=== PATIENT | male | born 1955 | race Caucasian/White ===

== ENCOUNTER 2019-02-17 04:58 | Inpatient (IN) ==
[2019-02-10 13:22] LABS: Appearance,Urine CLEAR; Bacteria,Urine 0 /hpf (0); Bilirubin,Urine NEG (NEG); Color,Urine STRAW; Glucose,Urine (UA) NEGATIVE (NEG); Ketones,Urine NEG (NEG); Leukocyte Esterase,Urine NEG /uL (NEG); Nitrate,Urine NEG (NEG); Protein,Urine 30 mg/dL (NEG); Specific Gravity,Urine 1.004 (1.000-1.035); Urine Blood NEG mg/dL (<0.03); Urine RBC 0 /hpf (0-1); Urine Squamous Epithelial Cell < 1 /hpf (0-4); Urine WBC 0 /hpf (0-4); Urobilinogen,Urine NEG (NEG)
[2019-02-10 14:14] LABS: Basophils # (Auto) 0.1 K/mcL (0.0-0.3); Eosinophils # (Auto) 0.1 K/mcL (0.0-0.7); Eosinophils % (Auto) 0.8 % (0.0-7.0); Granulocytes % (Auto) 57.5 % (38.0-78.0); Hematocrit 45.5 % (41.0-55.0); Hemoglobin 15.5 g/dL (13.5-16.5); Lymphocytes # (Auto) 2.4 K/mcL (1.5-4.8); Lymphocytes % (Auto) 30.1 % (15.5-49.0); Mean Cell Volume 98.2 fL (80.0-100.0); Mean Platelet Volume 8.1 fL (7.4-10.4); Monocytes # (Auto) 0.8 K/mcL (0.1-0.9); Monocytes % (Auto) 10.6 % (1.0-12.0); Platelet Count 269 K/mcL (140-440); RBC 4.64 M/mcL (4.50-5.90); Red Cell Distribution Width 13.1 % (11.5-14.5)
[2019-02-10 14:53] LABS: Blood Urea Nitrogen 5 mg/dl (8-23); Calcium 9.3 mg/dl (8.6-10.4); Carbon Dioxide 24 mmol/L (22-30); Chloride 91 mmol/L (96-108); Glomerular Filtration Rate 106; Glucose 108 mg/dL (70-105)
[2019-02-17] MEDS ORDERED: SCOPOLAMINE 1 PATCH PATCH TOPICAL PRN (05:00)
[2019-02-17] MEDS ORDERED: IPRATROPIUM/ALBUTEROL 3 ML AMPUL.NEB NEB PRN ×2 (05:00→08:33)
[2019-02-17 05:15] LABS: POC Blood Urea Nitrogen 4 mg/dl (8-23); POC CO2 22 mmol/L (22-30); POC Calcium, Ionized 1.09 mmol/L (1.16-1.32); POC Chloride 98 mmol/L (96-108); POC Creatinine 0.6 mg/dl (0.7-1.2); POC Glucose, Random 99 mg/dL (70-105); POC Potassium 4.5 mmol/L (3.3-5.1); POC Sodium 130 mmol/L (133-145)
[2019-02-17] MEDS ORDERED: oxyCODONE 10 MG TAB.ER.12H PO SCH (06:00)
[2019-02-17] MEDS ORDERED: PREGABALIN 75 MG CAPSULE PO SCH (06:00)
[2019-02-17] MEDS ORDERED: ceFAZolin 2 GM in DEXTROSE 5% IN WATER 50 ML IV SCH (06:00)
[2019-02-17] MEDS ORDERED: CELECOXIB 200 MG CAPSULE PO SCH (06:00)
[2019-02-17] MEDS ORDERED: IPRATROPIUM/ALBUTEROL 3 ML AMPUL.NEB NEB ONE (07:07)
[2019-02-17] MEDS ORDERED: PROPOFOL 200 MG/20 ML VIAL IV ONE (07:35)
[2019-02-17] MEDS ORDERED: KETAMINE 100 MG/ML ML IV ONE (07:35)
[2019-02-17] MEDS ORDERED: ROCURONIUM 10 MG/ML ML IV ONE (07:35)
[2019-02-17] MEDS ORDERED: LIDOCAINE HCL/PF 100 MG/5 ML SYRINGE IV ONE (07:35)
[2019-02-17] MEDS ORDERED: ONDANSETRON 4 MG/2 ML VIAL IV ONE (07:35)
[2019-02-17] MEDS ORDERED: SUCCINYLCHOLINE 20 MG/ML ML IV ONE (07:35)
[2019-02-17] MEDS ORDERED: fentaNYL 250 MCG/5 ML VIAL IV ONE (07:35)
[2019-02-17] MEDS ORDERED: ROPIVACAINE HCL/PF 30 ML VIAL IJ ONE (07:35)
[2019-02-17] MEDS ORDERED: TRANEXAMIC ACID 1,000 MG/10 ML VIAL IV ONE ×2 (07:35→08:57)
[2019-02-17] MEDS ORDERED: MIDAZOLAM 5 MG/5 ML VIAL IV ONE (07:35)
[2019-02-17] MEDS ORDERED: DEXAMETHASONE 10 MG/ML VIAL IV ONE (07:35)
[2019-02-17] MEDS ORDERED: PHENYLEPHRINE 10 MG/ML VIAL IV ONE (07:35)
[2019-02-17] MEDS ORDERED: GENTAMICIN SULFATE 800 MG/20 ML VIAL IR ONE (08:00)
[2019-02-17] MEDS ORDERED: METHOCARBAMOL 1,000 MG/10 ML VIAL IV PRN (08:33)
[2019-02-17] MEDS ORDERED: diphenhydrAMINE 50 MG/ML VIAL IV PRN (08:33)
[2019-02-17] MEDS ORDERED: PROMETHAZINE 25 MG/ML VIAL IV PRN (08:33)
[2019-02-17] MEDS ORDERED: FLUMAZENIL 0.1 MG/ML ML IV PRN (08:33)
[2019-02-17] MEDS ORDERED: HYDROmorphone 2 MG/ML VIAL IV PRN (08:33)
[2019-02-17] MEDS ORDERED: NALOXONE HCL 0.4 MG/ML VIAL IV PRN (08:33)
[2019-02-17] MEDS ORDERED: ACETAMINOPHEN 1,000 MG/100 ML BOTTLE IV ONE ×2 (08:33→10:00)
[2019-02-17] MEDS ORDERED: ePHEDrine 50 MG/ML AMPUL IV PRN (08:33)
[2019-02-17] MEDS ORDERED: ONDANSETRON 4 MG/2 ML VIAL IV PRN ×2 (08:33→08:57)
[2019-02-17] MEDS ORDERED: ATROPINE SULFATE 0.4 MG/ML VIAL IV PRN (08:33)
[2019-02-17] MEDS ORDERED: LACTATED RINGERS 1,000 ML IV SCH (08:45)
[2019-02-17] MEDS ORDERED: ONDANSETRON 4 MG ODT TABLET SL PRN (08:57)
[2019-02-17] MEDS ORDERED: MAGNESIUM HYDROXIDE 30 ML ORAL.SUSP PO PRN (08:57)
[2019-02-17] MEDS ORDERED: BISACODYL 10 MG SUPP.RECT PR PRN (08:57)
[2019-02-17] MEDS ORDERED: POLYETHYLENE GLYCOL 3350 17 GM PACKET PO PRN (08:57)
[2019-02-17] MEDS ORDERED: KETOROLAC 15 MG/ML VIAL IV PRN (08:57)
[2019-02-17] MEDS ORDERED: FLEETS ADULT ENEMA PR PRN (08:57)
[2019-02-17] MEDS ORDERED: METHOCARBAMOL 750 MG TABLET PO PRN (08:57)
[2019-02-17] MEDS ORDERED: BENZOCAINE/MENTHOL 1 LOZENGE PO PRN (08:57)
--- NOTE | 2019-02-17 08:57 | Brief Operative Note ---
Date of procedure: 02/17/19 Pre-op diagnosis: left shoulder rtc tear arthropathy Post-op diagnosis: same Procedure: left reverse total shoulder arthroplasty Grafts/Implants: Yes Anesthesia: GETA Complications: none Surgeon: Ramon Bansal Geological [employer] Teacher: Lesly Jeong Estimated blood loss (cc): 150 Specimens Removed/Pathology: none sent Condition: stable Disposition: PACU
[2019-02-17] MEDS: fentaNYL 100 MCG/2 ML VIAL IV PRN ×8 (09:35→10:30)
[2019-02-17] MEDS: METOPROLOL TARTRATE 5 MG/5 ML VIAL IV PRN ×2 (09:38→09:48)
[2019-02-17] MEDS: METOPROLOL TARTRATE 5 MG/5 ML VIAL IV SCH ×3 (10:14→10:40)
--- NOTE | 2019-02-17 10:26 | XRay Report ---
CLINICAL INFORMATION: Post-Op Total Shoulder COMPARISON: None. FINDINGS: Total shoulder prosthesis is anatomically aligned. No osseous abnormality. Periarticular gas and soft tissue swelling are seen as expected. IMPRESSION: Negative Interpreted and Authenticated by: Ramon Sandhu 02/17/19
[2019-02-17] MEDS ORDERED: hydrALAZINE 20 MG/ML VIAL IV ONE (10:31)
[2019-02-17] MEDS: MEPERIDINE 25 MG/ML SYRINGE IV PRN ×2 (10:38→10:43)
--- NOTE | 2019-02-17 10:47 | Operative Note ---
DATE OF OPERATION: 02/17/2019 PREOPERATIVE DIAGNOSIS: Left shoulder rotator cuff tear arthropathy. POSTOPERATIVE DIAGNOSIS: Left shoulder rotator cuff tear arthropathy. PROCEDURE: Left reverse total shoulder arthroplasty. SURGEON: Myranda Bansal M.D. TAPROOM ATTENDANT SURGEON: Lesly Jeong PA-C. The PA's assistance was required for the safe and efficient completion of the entire case. This provider's expertise and technical skill were required throughout the case. The PA assisted with preoperative coordination, intraoperative retraction, wound closure, dressing and splint application, as well as postoperative documentation and care coordination. ANESTHESIA: General. ESTIMATED BLOOD LOSS: 150 mL. COMPLICATIONS: None noted. SPECIMENS REMOVED: None. DRAINS: None. IMPLANTS: DePuy Delta Xtend cementless metaglene, FANG-coated, cementless; DePuy Delta Xtend locking metaglene screw 4.5 x 30 (x2), 4.5 x 24 (x1), 4.5 x 18 nonlocking (x1); Delta Xtend glenosphere standard 38 mm; DePuy Delta Xtend modular humeral stem size 14, FANG-coated, cementless; DePuy Delta Xtend modular eccentric epiphysis size 2 left, FANG-coated, cementless; DePuy Delta Xtend humeral polyethylene cup, standard 38, +6. INDICATIONS: The patient has had a longstanding history of worsening pain in the shoulder that has failed conservative treatment. Radiographs have confirmed advanced degenerative joint disease and a failed rotator cuff. After a long discussion about treatment options, the patient elected to proceed with a reverse total shoulder arthroplasty. The risks and benefits were discussed with the patient in detail including, but not limited to, the risks of anesthesia, problems with the heart or lungs related to anesthesia, infection, compromise or injury to the nerves and blood vessels, deep venous thrombosis, pulmonary embolism, pneumonia, continued pain after surgery, worsening pain or symptoms after surgery, swelling, loss of motion, instability, fracture, arm length discrepancy, and need for repeat surgery. DESCRIPTION OF PROCEDURE: The patient was seen in the preanesthesia waiting room where all questions were answered and the correct side and site were identified and marked. The patient was transferred to the operating room and administered the anesthetic and given preoperative antibiotics. A time-out was then called. The patient was placed in the modified beach chair position with all prominences well padded. The extremity was prepped and draped from the fingers up to the neck. A standard deltopectoral skin incision was created. Dissection was carried down to the deltopectoral groove and the cephalic vein was isolated medially and retracted laterally with the deltoid. Retractors were placed and the coracobrachialis was split up to the coracoacromial ligament allowing retraction of the conjoined tendon. We split the subscapularis 1 cm medial to the bicipital groove and extended the split into the rotator interval. This was tagged for later repair. The supraspinatus and infraspinatus had been previously torn and retracted. The biceps had previously been ruptured, and it was not present in the ____ groove. A capsular release was performed in a posterior subperiosteal direction along the humerus. The humeral head was then dislocated. We established intramedullary access and hand reamed up to get good cortical chatter with the Nervogrid Delta XTEND reverse total shoulder instrumentation. We then used the intramedullary guide and set to about 5 degrees of retroversion. The proximal humerus cut was performed and osteophytes were removed. A metal protector plate was then placed. Attention was then turned to the glenoid. Retractors were placed for optimal visualization and the labrum was excised in its entirety. A centralizing Steinmann pin was placed just into the posterior inferior quadrant in a standard fashion. We reamed over the pin to remove all the cartilage and get to a good base for the prosthesis. The drill was then placed over for the central peg. A cementless Metaglene was then impacted into place. We then drilled, measured, and placed the four screws starting inferior, then superior, then anterior, and finally posterior. The superior locking screw was lined up at the base of the coracoid process. We then impacted the head onto the Metaglene and tightened down in a standard fashion. Attention was then turned back to the humerus. Proximal reaming was performed off the intramedullary guide into the humeral head, using the eccentric guide to allow best coverage. We again set version and broached up to a stable implant. Trials were placed and good tension, motion, and stability were obtained at this point. Trials were removed and the final press fit femoral prosthesis was impacted into place with measured version. The final polyethylene was placed and the shoulder was reduced and again checked for motion, tension, and stability. We irrigated with 3 liters of antibiotic saline and closed the subscapularis with # 2 FiberWire. We irrigated again and closed the deltopectoral interval with several # 0 Vicryl figure of eight sutures. The subcutaneous layer was closed with 2-0 Vicryl and the skin was closed with Dermabond. A sterile pressure dressing was applied and the patient was placed into an abduction sling. All needle and sponge counts were correct. The patient was transferred to the recovery room in stable condition. PHIL:[email or web address] Job ID: [id number] Doc ID: [id number] Myranda Bansal MD
[2019-02-17] MEDS ORDERED: FLU VACC QS2019-20(6MOS UP)/PF 60 MCG/0.5 ML SYRINGE IM ONE (11:00)
[2019-02-17] MEDS: HYDROcodone/APAP 10/325MG TABLET PO PRN ×4 (12:43→23:01)
[2019-02-17] MEDS: DOCUSATE SODIUM 100 MG CAPSULE PO SCH ×2 (12:44→21:07)
[2019-02-17] MEDS: METOPROLOL TARTRATE 50 MG TABLET PO SCH ×2 (12:44→21:08)
[2019-02-17] MEDS: LACTATED RINGERS 1,000 ML IV SCH ×2 (16:29→18:06)
[2019-02-17] MEDS: 0.9 % SODIUM CHLORIDE 10 ML SYRINGE IV SCH ×2 (16:31→21:08)
[2019-02-17] MEDS: ceFAZolin 1 GM VIAL IV SCH (16:40)
[2019-02-17] MEDS ORDERED: SIMVASTATIN 10 MG TABLET PO SCH (21:00)
[2019-02-17] MEDS ORDERED: SENNOSIDES 1 TABLET PO SCH (21:00)
[2019-02-18] MEDS: ceFAZolin 1 GM VIAL IV SCH (00:21)
[2019-02-18] MEDS: LACTATED RINGERS 1,000 ML IV SCH ×2 (00:59→09:12)
[2019-02-18] MEDS: HYDROcodone/APAP 10/325MG TABLET PO PRN ×2 (04:43→09:11)
[2019-02-18] MEDS: 0.9 % SODIUM CHLORIDE 10 ML SYRINGE IV SCH (05:29)
[2019-02-18 06:17] LABS: Hematocrit 41.9 % (41.0-55.0)
--- NOTE | 2019-02-18 07:09 | Discharge Summary ---
Providers - Providers Patient information: Note initiated : 02/18/19 at 7:07 am Service Date, if different from initiated Date: [] Patient: Thiago Diaz 63 y/o M admitted on 02/17/19 for Left Reverse Total Shoulder Arthroplasty . Chief Complaint: [POD #1 s/p left TSA Denies shoulder pain, CP, SOB, numbness/tingling. Has no concerns] Discharge date: 02/18/19 Hospitalization Hospital Course: Patient was brought into OR yesterday for left total shoulder replacement which went on without complication. Was admitted overnight for post op care and pain control. Will discharge home today and follow up in 10-14 days for post op appt. Discharge diagnosis: shoulder osteoarthritis Exam - Exam Incision healing: Yes Incision draining: No Incision red: No Incision swollen: No Incision inflamed: No Clean and dry: Yes Weight bearing status: none Range of motion: full wrist and hand Ortho Discharge - TSA - Patient Instructions Diet: Regular Diet Activity: non weight bearing, other (sling multimedia coordinator for sleep and activity. May remove for hygiene and exercises) Total Shoulder Protocol: Leave immobilizer in place except for bathing and ROM. Abduction pillow. Continue to wear sling until seen by physician. Codman Pendulum : These exercises use momentum produced by your body to move your shoulder joint. Bend your knees and shift your weight to your front leg, then back, allowing your arm to swing in the same directions. Using the same technique, alternately shift your weight between your right and left legs, allowing your arm to swing from side to side. These exercises are also performed in counterclockwise and clockwise circular motions. Typically these exercises are performed several times per day, for a set number repetitions or minutes, such as 20 times in a row or 5 minutes at a time. Dressing Care: May shower in 2 days, Other (Alexander dressing is shower proof. Leave in place until post op appointment. Pat and air dry when done with shower. If alexander dressing starts to fall off before appointment, may remove. Glue patch beneath is also shower proof. Keep covered outside of shower if this happens) - Follow Up Plan Follow Up Appointments: Lesly Jeong PA-C [Physician Supervisor Weaving] - 03/04/19 9:00 am Disposition: Home, Self-Care Prognosis: Good Rehab Potential: Good I certify that the patient requires SNF services: No Overall status at discharge: patient is progressing back to baseline - Orders For Discharge Prescriptions: HYDROcodone/APAP 10/325MG [[place] 10-325Mg] 1 - 2 tab PO Q4HP PRN #60 tab PRN Reason: Per Pain Protocol Prescription Printed Additional Discharge Orders: Physical Therapy at Discharge - [facility] Location: None Selected Pending Studies Resuscitation Status Full Code Diet Regular Diet Start SatFeb 17 901 Hydrocodone Bitart/Acetaminophen ([place] 10/325mg) 0 tab PO Q4HP PRN; Protocol PRN Reason: Per Pain Protocol Last Admin: 02/18/19 04:43 Dose: 2 tab Documented by: Admin: 02/17/19 23:01 Dose: 1 tab Documented by: Admin: 02/17/19 21:07 Dose: 1 tab Documented by: Admin: 02/17/19 16:39 Dose: 2 tab Documented by: Admin: 02/17/19 12:43 Dose: 2 tab Documented by: PIOTR Docusate Sodium (Colace) 100 mg PO BID [facility] Last Admin: 02/17/19 21:07 Dose: 100 mg Documented by: Admin: 02/17/19 12:44 Dose: Not Given Documented by: PIOTR Lactated Ringer's (Lactated Ringers) 1,000 mls @ 125 mls/hr IV .Q8H [facility] Last Admin: 02/18/19 00:59 Dose: Not Given Documented by: Admin: 02/17/19 18:06 Dose: Not Given Documented by: Admin: 02/17/19 16:29 Dose: 125 mls/hr Documented by: PIOTR Ketorolac Tromethamine (Toradol) 15 mg IV Q6HP PRN; Protocol PRN Reason: Per Pain Protocol Stop: 02/19/19 09:01 Last Admin: 02/17/19 12:43 Dose: 15 mg Documented by: PIOTR Methocarbamol (Robaxin) 750 mg PO Q6HP PRN PRN Reason: Muscle Spasm Last Admin: 02/18/19 04:43 Dose: 750 mg Documented by: LYNNETTE Metoprolol Tartrate (Lopressor) 50 mg PO BID [facility] Last Admin: 02/17/19 21:08 Dose: 50 mg Documented by: Admin: 02/17/19 12:44 Dose: Not Given Documented by: [email or web address] Ondansetron HCl (Zofran Odt) 4 mg SL Q4HP PRN; Protocol PRN Reason: Nausea And Vomiting Last Admin: 02/17/19 19:24 Dose: 4 mg Documented by: LYNNETTE Senna (Senokot) 2 tab PO HS [facility] Last Admin: 02/17/19 21:08 Dose: 2 tab Documented by: LYNNETTE Simvastatin (Zocor) 10 mg PO HS [facility] Last Admin: 02/17/19 21:08 Dose: 10 mg Documented by: LYNNETTE Sodium Chloride (Saline Flush) 10 ml IV Q8 [facility] Last Admin: 02/18/19 05:29 Dose: Not Given Documented by: Admin: 02/17/19 21:08 Dose: Not Given Documented by: Admin: 02/17/19 16:31 Dose: Not Given Documented by: [email or web address] Shift Summary 02/18/19 03:52 Shift Summary by Trice Cuello The patient is alert and oriented times four, has a left shoulder immobilizer and dressing CDI in place, ice pack provided periodically this shift and CMS intact. He was given Hydrocodone 10/325 two tablets for pain three times this shift, pain was well managed at a tolerable 2-3/10 level. Voiding quantity sufficient via urinal, IV 18 gauge SL to his right wrist/forearm and taking adequate PO. He tolerated a regular diet well, no complaints of nausea. Plan is to discharge home at 1650 with his spouse today. Initialized on 02/18/19 03:52 - END OF NOTE
[2019-02-18] MEDS: DOCUSATE SODIUM 100 MG CAPSULE PO SCH (09:02)
[2019-02-18] MEDS: METOPROLOL TARTRATE 50 MG TABLET PO SCH (09:02)
[2019-02-18] MEDS ORDERED: FLU VACC QS2019-20(6MOS UP)/PF 60 MCG/0.5 ML SYRINGE IM ONE (10:00)
== END 2019-02-18 12:35 | disposition home or self-care (01) | DRG 483 ==
LOC: MEDSUR 04:58
PROVIDERS: ADMIT Orthopaedic Surgery Sports Medicine; ATTEND Orthopaedic Surgery Sports Medicine